=== PATIENT | male | born 1955 | race Caucasian/White ===

== ENCOUNTER 2016-10-09 11:26 | Emergency (ER) | payer SELFPAY ==
[2016-10-09 11:50] VITALS: BP 127/79; PULSE 55; TEMP 97.6; BMI 33.9
--- NOTE | 2016-10-09 12:14 | PDOC ---
History of Present Illness <Justice Sood - Last Filed: 10/09/16 12:10> - General History Source: Patient Exam Limitations: No Limitations - History of Present Illness Initial Comments: 10/09/16 12:21 Patient is a 61 year old male with no pmh who presents to the ED for a growth on the left side of neck. Patient reports that the growth has increased in size and is very itchy. Patient was seen today at [facility] and has concerns if the growth is cancerous. 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 <Nataliia Rosen - Last Filed: 10/09/16 12:22> - General Chief Complaint: Pain Stated Complaint: NECK PAIN Time Seen by Provider: 10/09/16 11:51 Past History - Past Medical History Diabetes: No (BORDER LINE) Hypercholesterolemia: No (BORDER LINE) - Psycho/Social/Smoking Cessation Hx Anxiety: No Suicidal Ideation: No Smoking History: Never smoked Have you smoked in the past 12 months: No Information on smoking cessation initiated: No Hx Alcohol Use: No Drug/Substance Use Hx: No Substance Use Type: None <Justice Sood - Last Filed: 10/09/16 12:10> <Nataliia Rosen - Last Filed: 10/09/16 12:22> - Past Medical History Allergies/Adverse Reactions: Allergies Allergy/AdvReac Type Severity Reaction Status Date / Time No Known Allergies Allergy Verified 10/09/16 11:46 Home Medications: Ambulatory Orders Albuterol Sulfate Inhaler - [Ventolin HFA Inhaler -] 1 - 2 inh PO QID #1 inhaler 11/25/13 Prednisone [Deltasone -] 20 mg PO BID #10 tablet 11/25/13 Review of Systems - Review of Systems Able to Perform ROS?: Yes Comments:: 10/09/16 12:21 General: Absent: fever, chills Skin: +small growth on neck, +itchiness of the growth Musculoskeletal: Absent: no back pain <Nataliia Rosen - Last Filed: 10/09/16 12:22> *Physical Exam - Vital Signs Last Vital Signs Temp Pulse Resp BP Pulse Ox 97.6 F 55 L 18 127/79 100 10/09/16 11:47 10/09/16 11:47 10/09/16 11:47 10/09/16 11:47 10/09/16 11:47 - Physical Exam General Appearance: Yes: Nourished, Appropriately Dressed. No: Apparent Distress HEENT: positive: Normal ENT Inspection Neck: positive: Supple. negative: Tender Respiratory/Chest: positive: Lungs Clear, Normal Breath Sounds. negative: Respiratory Distress Cardiovascular: positive: Regular Rhythm, Regular Rate Integumentary: positive: Normal Color, Other (2 cm diameter area of erythema. scaly. raised. no d/c or necrosis) Neurologic: positive: Fully Oriented, Alert <Justice Sood - Last Filed: 10/09/16 12:10> - Vital Signs Last Vital Signs Temp Pulse Resp BP Pulse Ox 97.6 F 55 L 18 127/79 100 10/09/16 11:47 10/09/16 11:47 10/09/16 11:47 10/09/16 11:47 10/09/16 11:47 <Nataliia Rosen - Last Filed: 10/09/16 12:22> *DC/Admit/Observation/Transfer <Justice Sood - Last Filed: 10/09/16 12:10> - Attestations Scribe Attestion: 10/09/16 12:22 Documentation prepared by DON Shafer, acting as associate medical director for Justice Sood MD/DO. 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
== END 2016-10-09 12:54 | disposition home or self-care (01) ==
LOC: JER 11:26
DX: B36.8 Other specified superficial mycoses (principal); E11.9 Type 2 diabetes mellitus without complications; E78.00 Pure hypercholesterolemia, unspecified
CPT/HCPCS: 99281-25

== ENCOUNTER 2016-11-05 13:59 | Emergency (ER) | payer SELFPAY ==
[2016-11-05 14:05] VITALS: BP 123/85; PULSE 87; TEMP 97.6; BMI 33.9
--- NOTE | 2016-11-05 14:18 | PDOC ---
History of Present Illness - General Chief Complaint: Respiratory Stated Complaint: SOB Time Seen by Provider: 11/05/16 14:18 History Source: Patient Exam Limitations: No Limitations - History of Present Illness Initial Comments: 11/05/16 14:34 61 yo with no PMH because he does not go to a doctor. No Meds, No Allergies, No PMH, No PSH, No Tobacco, No Alcohol, co productive cough x 3 days. Wants antibiotic and albuterol and no tests. Timing/Duration: 1 week, getting worse Severity: mild Modifying Factors: improves with: other (Nothing makes it worse or better) Associated Symptoms: reports: denies symptoms Past History - Past Medical History Allergies/Adverse Reactions: Allergies Allergy/AdvReac Type Severity Reaction Status Date / Time No Known Allergies Allergy Verified 11/05/16 14:05 Home Medications: Ambulatory Orders Albuterol Sulfate Inhaler - [Ventolin HFA Inhaler -] 1 - 2 inh PO QID #1 inhaler 11/05/16 Azithromycin [Zithromax -] 250 mg PO UTDICT #6 tab 11/05/16 Methylprednisolone [Medrol Dose Juan] 4 mg PO ASDIR #21 tablet 11/05/16 NK [No Known Home Medication] 11/05/16 Diabetes: No (BORDER LINE) Hypercholesterolemia: No (BORDER LINE) - Psycho/Social/Smoking Cessation Hx Anxiety: No Suicidal Ideation: No Smoking History: Never smoked Have you smoked in the past 12 months: No Hx Alcohol Use: Yes (SOCIAL) Drug/Substance Use Hx: No Substance Use Type: None Review of Systems - Review of Systems Able to Perform ROS?: Yes Is the patient limited Icelandic proficient: Yes Constitutional: No: Symptoms Reported HEENTM: No: Symptoms Reported Respiratory: Yes: See HPI Cardiac (ROS): No: Symptoms Reported ABD/GI: No: Symptoms Reported : No: Symptoms Reported Musculoskeletal: No: Symptoms Reported Integumentary: No: Symptoms Reported Neurological: No: Symptoms reported Psychiatric: No: Anxiety, Depression Endocrine: No: Symptoms Reported Hematologic/Lymphatic: No: Symptoms Reported All Other Systems: Reviewed and Negative *Physical Exam - Vital Signs Last Vital Signs Temp Pulse Resp BP Pulse Ox 97.6 F 87 20 123/85 97 11/05/16 14:01 11/05/16 14:01 11/05/16 14:01 11/05/16 14:01 11/05/16 14:01 - Physical Exam Comments: 11/05/16 14:37 Refused EKG General Appearance: Yes: Nourished, Appropriately Dressed HEENT: positive: EOMI, ISABELLA, Normal ENT Inspection, Normal Voice Neck: positive: Trachea midline, Normal Thyroid, Supple. negative: Tender, Lymphadenopathy (R), Lymphadenopathy (L) Respiratory/Chest: positive: Normal Breath Sounds, Wheezing. negative: Respiratory Distress Cardiovascular: positive: Regular Rhythm, Regular Rate. negative: Murmur Gastrointestinal/Abdominal: positive: Normal Bowel Sounds, Flat, Soft Lymphatic: negative: Adenopathy Musculoskeletal: positive: Normal Inspection Extremity: positive: Normal Capillary Refill, Normal Inspection, Normal Range of Motion Integumentary: positive: Normal Color, Dry, Warm, Other (patient has lesion on neck, looks fungal, told patient he needs a biopsy if antifungal's are not working.... 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 NML intact, Fully Oriented, Alert, Normal Mood/ Affect *DC/Admit/Observation/Transfer Diagnosis at time of Disposition: Bronchitis - Discharge Dispostion Disposition: HOME Condition at time of disposition: Good Admit: No - Prescriptions Prescriptions: Methylprednisolone [Medrol Dose Juan] 4 mg PO ASDIR #21 tablet Albuterol Sulfate Inhaler - [Ventolin HFA Inhaler -] 1 - 2 inh PO QID #1 inhaler Azithromycin [Zithromax -] 250 mg PO UTDICT #6 tab - Referrals Referrals: Pietro Wren MD [Staff Physician] - - Patient Instructions Additional Instructions: Phu- As soon as you get your medicaid situation straightened out, you will need to get caught up with your routine health care. Return to us if worse or any problems. Best- Dr. Sotero Hemphill - Attestations Physician Attestion: 11/05/16 14:18 I, Dr. Sotero Hemphill, attest that this document has been prepared under my direction and personally reviewed by me in its entirety. I further attest, that it accurately reflects all work, treatment, procedures and medical decision -making performed by me.
[2016-11-05] MEDS ORDERED: predniSONE 20 MG TABLET (UD) PO ONE (14:28)
[2016-11-05] MEDS ORDERED: AZITHROMYCIN 250 MG TABLET (FP) PO ONE (14:28)
[2016-11-05] MEDS ORDERED: predniSONE 20 MG TABLET (UD) ONE (14:31)
[2016-11-05] MEDS ORDERED: AZITHROMYCIN 250 MG TABLET (FP) ONE (14:32)
[2016-11-05] MEDS ORDERED: ALBUTEROL SO4 0.083% IH SOL 2.5 MG/3 ML VIAL.NEB. NEB ONE ×2 (14:35→14:36)
== END 2016-11-05 15:03 | disposition home or self-care (01) ==
LOC: JER 13:59
PROC: 3E0F7GC Introduction of Other Therapeutic Substance into Respiratory Tract, Via Natural or Artificial Opening (ICD-10-PCS; principal; 2016-11-05)
DX: J40 Bronchitis, not specified as acute or chronic (principal)
CPT/HCPCS: 99281-25

== ENCOUNTER 2017-11-22 11:33 | Emergency (ER) | payer OTHER ==
[2017-11-22 11:45] VITALS: TEMP 98.2; BMI 34.9
--- NOTE | 2017-11-22 12:18 | PDOC ---
History of Present Illness - General Chief Complaint: Shortness of Breath Stated Complaint: SOB, RESPIRATORY Time Seen by Provider: 11/22/17 12:16 History Source: Patient Exam Limitations: No Limitations - History of Present Illness Initial Comments: 11/22/17 14:02 Patient is a 62-year-old male with pre-diabetes, who presents to the emergency department with 1 week of shortness of breath and difficulty breathing. Patient states he usually gets an episode of bronchitis around this time of year when the weather changes. He states that it was exacerbated yesterday when he helped an elderly neighbor clean their bathroom. Patient states that he has night sweats. Denies fevers, chills, lethargy, chest pain, palpitations, nausea, vomiting, diarrhea, frequency, urgency. Past History - Travel Traveled outside of the country in the last 30 days: No Close contact w/someone who was outside of country & ill: No - Past Medical History Allergies/Adverse Reactions: Allergies Allergy/AdvReac Type Severity Reaction Status Date / Time No Known Allergies Allergy Verified 11/22/17 11:41 Home Medications: Ambulatory Orders Albuterol Sulfate Inhaler - [Ventolin HFA Inhaler -] 1 - 2 inh PO Q4H #1 inhaler 11/22/17 Azithromycin [Zithromax 250mg Tablets -] 250 mg PO UTDICT #6 tab 11/22/17 predniSONE [Deltasone -] 40 mg PO DAILY #8 tablet 11/22/17 CVA: No COPD: No Diabetes: No (BORDER LINE) Hypercholesterolemia: No (BORDER LINE) - Immunization History Immunization Up to Date: Yes - Suicide/Smoking/Psychosocial Hx Smoking History: Never smoked Have you smoked in the past 12 months: No Information on smoking cessation initiated: No Hx Alcohol Use: No Drug/Substance Use Hx: No Substance Use Type: None Review of Systems - Review of Systems Able to Perform ROS?: Yes Comments:: 11/22/17 14:08 CONSTITUTIONAL: Absent: fever, chills, diaphoresis, generalized weakness, malaise, loss of appetite HEENT: Absent: rhinorrhea, nasal congestion, throat pain, throat swelling, difficulty swallowing, mouth swelling, ear pain, eye pain, visual Changes CARDIOVASCULAR: Absent: chest pain, loss of consciousness, palpitations, irregular heart rate, peripheral edema RESPIRATORY: Present: cough, shortness of breath. Absent: dyspnea with exertion, orthopnea, wheezing, stridor, hemoptysis GASTROINTESTINAL: Absent: abdominal pain, abdominal distension, nausea, vomiting, diarrhea, constipation, melena, hematochezia GENITOURINARY: Absent: dysuria, frequency, urgency, hesitancy, hematuria, flank pain, genital pain MUSCULOSKELETAL: Absent: myalgia, arthralgia, joint swelling SKIN: Absent: rash, itching, pallor HEMATOLOGIC/IMMUNOLOGIC: Absent: easy bleeding, easy bruising, lymphadenopathy, frequent infections ENDOCRINE: Absent: unexplained weight gain, unexplained weight loss, heat intolerance, cold intolerance NEUROLOGIC: Absent: headache, focal weakness or paresthesias, dizziness, unsteady gait, seizure, mental status changes, bladder or bowel incontinence PSYCHIATRIC: Absent: anxiety, depression, suicidal or homicidal ideation, hallucinations. Is the patient limited Welsh proficient: No *Physical Exam - Vital Signs Last Vital Signs Temp Pulse Resp BP Pulse Ox 98.2 F 68 17 142/73 97 11/22/17 11:42 11/22/17 11:42 11/22/17 11:42 11/22/17 11:42 11/22/17 11:42 - Physical Exam Comments: 11/22/17 14:14 GENERAL: Well developed, well nourished. Awake and alert. No acute distress. HEENT: Normocephalic, atraumatic. PERRLA, EOMI. No conjunctival pallor. Sclera are non- icteric. Moist mucous membranes. Oropharynx is clear. NECK: Supple. Full ROM. No JVD. Carotid pulses 2+ and symmetric, without bruits. No thyromegaly. No lymphadenopathy. CARDIOVASCULAR: Regular rate and rhythm. No murmurs, rubs, or gallops. Distal pulses are 2+ and symmetric. PULMONARY: No evidence of respiratory distress. Scattered expiratory wheezing b/l. No rales or rhonchi. ABDOMINAL: Soft. Non-tender. Non-distended. No rebound or guarding. No organomegaly. Normoactive bowel sounds. MUSCULOSKELETAL Normal range of motion at all joints. No bony deformities or tenderness. No CVA tenderness. EXTREMITIES: No cyanosis. No clubbing. No edema. No calf tenderness. SKIN: Warm and dry. Normal capillary refill. No rashes. No jaundice. NEUROLOGICAL: Alert, awake, appropriate. Cranial nerves 2-12 intact. No deficits to light touch and temperature in face, upper extremities and lower extremities. No motor deficits in the in face, upper extremities and lower extremities. Normoreflexic in the upper and lower extremities. Normal speech. Toes are down- going bilaterally. Gait is normal without ataxia. PSYCHIATRIC: Cooperative. Good eye contact. Appropriate mood and affect. Medical Decision Making - Medical Decision Making 11/22/17 13:18 Patient is a 62-year-old male past medical history of prediabetes, who presents emergency Department with 1 week of shortness of breath. Patient does have scattered wheezing on exam consistent with bronchitis. However due to night sweats would like to rule out pneumonia at this time. Patient agreeable to having chest x-ray to rule out pneumonia; however, patient does not want any blood tests or EKG done today. 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 We'll perform chest x-ray give one DuoNeb and steroids her symptoms. Reevaluate 11/22/17 14 14:26 Chest x-ray is negative for pneumonia at this time. Patient feels better after DuoNeb and steroids. We'll discharge home with a diagnosis of acute bronchitis. Patient sent prescriptions for steroids, azithromycin, and an albuterol inhaler. Patient told to follow-up with his primary care doctor. Patient understood all discharge instructions and all questions were answered. *DC/Admit/Observation/Transfer Diagnosis at time of Disposition: Bronchitis - Discharge Dispostion Disposition: HOME Condition at time of disposition: Stable Admit: No - Prescriptions Prescriptions: Albuterol Sulfate Inhaler - [Ventolin HFA Inhaler -] 1 - 2 inh PO Q4H #1 inhaler Azithromycin [Zithromax 250mg Tablets -] 250 mg PO UTDICT #6 tab predniSONE [Deltasone -] 40 mg PO DAILY #8 tablet - Referrals Referrals: Chuck Robbins MD [Primary Care Provider] - - Patient Instructions Printed Discharge Instructions: DI for Acute Bronchitis Additional Instructions: Your chest x-ray today was negative for pneumonia. You have acute bronchitis. Please take your albuterol inhaler every 4 hours as needed for coughing or shortness of breath. Please take the prednisone daily for the next 4 days. Please take the azithromycin as directed. Please follow-up with your primary care doctor this week. Return to the emergency department if you develop fevers, chills, worsening shortness of breath, difficulty breathing, or have any changes in your symptoms. - Post Discharge Activity
[2017-11-22] MEDS ORDERED: ALBUTEROL SO4 2.5/IPRATROPIUM 0.5 INH SOL 3 ML VIAL.NEB. NEB ONE ×2 (12:38→12:48)
[2017-11-22] MEDS ORDERED: predniSONE 20 MG TABLET (UD) PO ONE (12:38)
[2017-11-22] MEDS ORDERED: predniSONE 20 MG TABLET (UD) ONE (12:48)
[2017-11-22 15:13] VITALS: BP 188/65; PULSE 70
== END 2017-11-22 15:11 | disposition home or self-care (01) ==
LOC: JER 11:33
PROC: 3E0F7GC Introduction of Other Therapeutic Substance into Respiratory Tract, Via Natural or Artificial Opening (ICD-10-PCS; principal; 2017-11-22)
DX: J40 Bronchitis, not specified as acute or chronic (principal)
CPT/HCPCS: 71046-TC-FY; 99282-25

== ENCOUNTER 2021-09-16 15:48 | Emergency (ER) | payer OTHER ==
[2021-09-16 16:05] VITALS: BP 147/78; PULSE 77; TEMP 98; BMI 39.4
[2021-09-16] MEDS ORDERED: ACETAMINOPHEN 500 MG TABLET (FP) PO ONE (17:39)
[2021-09-16] MEDS ORDERED: ACETAMINOPHEN 325 MG TABLET (FP) ONE (17:48)
== END 2021-09-16 19:07 | disposition home or self-care (01) ==
LOC: JER 15:48
DX: S76.112A Strain of left quadriceps muscle, fascia and tendon, initial encounter (principal); W00.9XXA Unspecified fall due to ice and snow, initial encounter; Y92.9 Unspecified place or not applicable
CPT/HCPCS: 73562-TC-LT-FY; 99284-25

== ENCOUNTER 2021-09-21 04:27 | Day surgery (SDC) | payer OTHER ==
[2021-09-20 12:40] VITALS: BMI 35.7
[2021-09-21] MEDS ORDERED: BUPIVACAINE HCL/PF 0.5% (5MG/ML) 10 ML VIAL ONE (08:44)
[2021-09-21] MEDS ORDERED: BACITRACIN 15 GM TUBE TOPICAL OINTMENT ONE (08:44)
[2021-09-21] MEDS ORDERED: BUPIVACAINE LIPOSOME/PF (EXPAREL) 266 MG/20 ML VIAL ONE (08:44)
[2021-09-21] MEDS ORDERED: MIDAZOLAM HCL 2 MG/2 ML SINGLE DOSE VIAL ONE ×3 (08:46→10:15)
[2021-09-21] MEDS ORDERED: SODIUM CHLORIDE 0.9% P/F 10 ML VIAL IJ ONE (08:46)
[2021-09-21] MEDS ORDERED: PROPOFOL 20 ML ONE ×3 (10:15→11:13)
[2021-09-21] MEDS ORDERED: ceFAZolin SODIUM 1 GM VIAL IVPB ONE (11:01)
[2021-09-21] MEDS ORDERED: oxyCODONE HCL 5 MG TABLET PO PRN (11:04)
[2021-09-21] MEDS ORDERED: ONDANSETRON 4 MG/2 ML VIAL IVPUSH PRN (11:04)
[2021-09-21] MEDS ORDERED: LACTATED RINGERS SOLUTION 1,000 ML IV SCH (11:15)
[2021-09-21] MEDS ORDERED: KETOROLAC TROMETHAMINE 30 MG/1 ML VIAL ONE (11:31)
[2021-09-21] MEDS ORDERED: HYDROmorphone HCl 2 MG/ML VIAL ONE (12:43)
[2021-09-21] MEDS ORDERED: HYDROmorphone HCL CARPU-JECT 2 MG/1 ML DISP.SYRIN IVPUSH ONE (12:47)
[2021-09-21] MEDS: HYDROmorphone HCl 2 MG/ML VIAL IVPUSH PRN ×4 (12:47→13:31)
[2021-09-21] MEDS ORDERED: HYDROmorphone HCl 2 MG/ML VIAL IVPUSH ONE ×2 (13:02→13:16)
[2021-09-21] MEDS ORDERED: ACETAMINOPHEN INJECTION 100 ML IVPB ONE (13:39)
[2021-09-21] MEDS ORDERED: ACETAMINOPHEN 1000 MG/100 ML BAG IVPB ONE (13:41)
[2021-09-21] MEDS ORDERED: oxyCODONE HCL 5 MG TABLET ONE (13:56)
[2021-09-21 17:12] VITALS: BP 150/81; PULSE 77; TEMP 97.8
== END 2021-09-21 16:40 | disposition home or self-care (01) ==
LOC: JASU-SURG 04:27
PROVIDERS: ATTEND Orthopaedic Surgery
PROC: 0LQM0ZZ Repair Left Upper Leg Tendon, Open Approach (ICD-10-PCS; principal; 2021-09-21 10:00)
DX: S76.112A Strain of left quadriceps muscle, fascia and tendon, initial encounter (principal); X58.XXXA Exposure to other specified factors, initial encounter; Y93.9 Activity, unspecified; Y92.9 Unspecified place or not applicable; Y99.9 Unspecified external cause status
CPT/HCPCS: 94760; J0131

== ENCOUNTER 2023-01-02 05:03 | Day surgery (SDC) | payer OTHER ==
[2023-01-01 09:17] VITALS: BMI 34.9
[2023-01-02 09:18] VITALS: RESP 20
[2023-01-02 09:27] LABS: BASO % 1.1 % (0-2.0); EOS % 1.7 % (0-4.5); HEMATOCRIT 39.5 % (35.4-49); HEMOGLOBIN 12.9 GM/dL (11.7-16.9); LYMPH % 30.8 % (8-40); MCHC 32.6 g/dl (32.0-35.9); MEAN CELL VOLUME 85.8 fl (80-96); MEAN PLT VOLUME 7.9 fl (7.5-11.1); MONO % 7.6 % (3.8-10.2); NEUT % 58.8 % (42.8-82.8); PLATELET COUNT 336 10^3/uL (134-434); RDW 16.4 % (11.9-15.9); WHITE BLOOD COUNT 7.2 K/mm3 (4.0-10.0)
[2023-01-02 09:30] LABS: INR 1.04 (0.83-1.09); PROTHROMBIN TIME (PATIENT) 12.1 SEC (9.7-13.0)
[2023-01-02 13:45] VITALS: TEMP 98.7
[2023-01-02 14:41] LABS: BF WBC & OTHER NUCLEATED CELLS 1041 /mm3
[2023-01-02 15:09] LABS: BODY FLUID MACROPHAGES 10 %
[2023-01-02 17:43] VITALS: BP 136/76; PULSE 87
[2023-01-03 16:09] LABS: BODY FLUID ALBUMIN 2.9 g/dL (Not Estab.)
== END 2023-01-02 16:28 | disposition home or self-care (01) ==
LOC: JRADIR 05:03
PROVIDERS: ATTEND Family Medicine
PROC: 0W9B3ZX Drainage of Left Pleural Cavity, Percutaneous Approach, Diagnostic (ICD-10-PCS; principal; 2023-01-02)
DX: J90 Pleural effusion, not elsewhere classified (principal)
CPT/HCPCS: 32555; 36415; 71046-TC-FY; 76942; 82042; 82150; 82465; 82945; 83615; 83986; 84157; 84478; 85025; 85610; 87070; 87075; 87102; 87116; 87205; 87206; 87210; 88108; 88305-TC

== ENCOUNTER 2023-01-26 08:40 | Emergency (ER) | payer OTHER ==
[2023-01-26 08:52] VITALS: BMI 34.2
[2023-01-26 10:23] LABS: BASO % 0.7 % (0-2.0); EOS % 6.3 % (0-4.5); HEMATOCRIT 39.1 % (35.4-49); HEMOGLOBIN 12.6 GM/dL (11.7-16.9); LYMPH % 21.6 % (8-40); MCH 27.5 pg (25.7-33.7); MCHC 32.2 g/dl (32.0-35.9); MEAN CELL VOLUME 85.4 fl (80-96); MEAN PLT VOLUME 7.4 fl (7.5-11.1); MONO % 9.5 % (3.8-10.2); NEUT % 61.9 % (42.8-82.8); PLATELET COUNT 277 10^3/uL (134-434); RBC 4.58 M/mm3 (4.00-5.60); RDW 17.1 % (11.9-15.9); WHITE BLOOD COUNT 6.9 K/mm3 (4.0-10.0)
[2023-01-26 10:30] LABS: INR 0.97 (0.83-1.09); PROTHROMBIN TIME (PATIENT) 11.3 SEC (9.7-13.0)
[2023-01-26 10:32] LABS: ACTIVATED PTT 31.5 SECONDS (25.2-36.5)
[2023-01-26 10:42] LABS: POTASSIUM 4.4 mmol/L (3.5-5.1)
[2023-01-26 10:44] LABS: CALCIUM 9.1 mg/dL (8.5-10.1)
[2023-01-26 10:45] LABS: ALBUMIN 3.2 g/dl (3.4-5.0)
[2023-01-26 10:50] LABS: BILIRUBIN,TOTAL 0.4 mg/dL (0.2-1); TOT PROT 6.7 g/dl (6.4-8.2)
[2023-01-26 13:33] VITALS: TEMP 98.3
[2023-01-26] MEDS ORDERED: FENTANYL CITRATE/PF 50 MCG/ML VIAL ONE (15:25)
[2023-01-26] MEDS ORDERED: MIDAZOLAM HCL 2 MG/2 ML SINGLE DOSE VIAL ONE (15:25)
[2023-01-26] MEDS: MIDAZOLAM HCL 2 MG/2 ML SINGLE DOSE VIAL IVPUSH SCH ×2 (15:35→15:45)
[2023-01-26] MEDS: FENTANYL CITRATE/PF 50 MCG/ML VIAL IVPUSH SCH ×2 (15:35→15:45)
[2023-01-26] MEDS ORDERED: SODIUM CHLORIDE 500 ML IV SCH (16:45)
[2023-01-26 16:48] VITALS: BP 116/51; PULSE 62; RESP 16
[2023-01-26 18:45] LABS: BF WBC & OTHER NUCLEATED CELLS 6824 /mm3
[2023-01-26 19:46] LABS: BODY FLUID MACROPHAGES 7 %; BODYL FLD EOSINOPHIL 3 %
[2023-01-29 12:10] LABS: BODY FLUID ALBUMIN 2.9 g/dL (Not Estab.)
== END 2023-01-26 18:22 | disposition home or self-care (01) ==
LOC: JER 08:40
PROC: 3E033GC Introduction of Other Therapeutic Substance into Peripheral Vein, Percutaneous Approach (ICD-10-PCS; principal; 2023-01-26)
PROC: 3E033GC Introduction of Other Therapeutic Substance into Peripheral Vein, Percutaneous Approach (ICD-10-PCS; 2023-01-26)
DX: R06.02 Shortness of breath (principal); J90 Pleural effusion, not elsewhere classified; Z98.890 Other specified postprocedural states; Z20.822 Contact with and (suspected) exposure to COVID-19
CPT/HCPCS: 0241U-QW; 32550; 36415; 71045-TC-FY; 71046-TC-FY; 80053; 82042; 82150; 82465; 82945; 83615; 83986; 84157; 84478; 84484; 85025; 85610; 85730; 86850; 86900; 86901; 87070; 87075; 87102; 87116; 87205; 87206; 87210; 88108; 88305-TC; 93005; 93010; 99285-25

== ENCOUNTER 2023-02-23 05:45 | Day surgery (SDC) | payer OTHER ==
[2023-02-21 11:11] VITALS: BMI 34.3
[2023-02-23 08:50] VITALS: RESP 20
[2023-02-23 12:04] VITALS: BP 130/70; PULSE 80; TEMP 97.8
== END 2023-02-23 11:45 | disposition home or self-care (01) ==
LOC: JRADIR 05:45
PROVIDERS: ATTEND Internal Medicine
PROC: 0WPB00Z Removal of Drainage Device from Left Pleural Cavity, Open Approach (ICD-10-PCS; principal; 2023-02-23)
DX: Z46.82 Encounter for fitting and adjustment of non-vascular catheter (principal)
CPT/HCPCS: 32552; 71045-TC-FY